=== PATIENT | female | born 1955 | race Hispanic/Latino ===

== ENCOUNTER 2022-12-27 13:41 | Emergency (ER) | payer OTHER, MEDICARE ==
[~2022-12-27] VITALS: Ht 165.1 cm; Wt 74.8 kg
[2022-12-27 13:46] VITALS: BP 144/67
[2022-12-27] MEDS ORDERED: CYCLOBENZAPRINE HCL 10 MG TABLET PO ONE (15:00)
[2022-12-27] MEDS ORDERED: TIZA4CAP8 PO (16:41)
== END 2022-12-27 17:00 | disposition home or self-care (01) ==
LOC: EDH 13:41
DX: S13.4XXA Sprain of ligaments of cervical spine, initial encounter (principal); S33.5XXA Sprain of ligaments of lumbar spine, initial encounter; E10.9 Type 1 diabetes mellitus without complications; I10 Essential (primary) hypertension; V89.2XXA Person injured in unspecified motor-vehicle accident, traffic, initial encounter; Y93.89 Activity, other specified; Y92.89 Other specified places as the place of occurrence of the external cause; Y99.8 Other external cause status
CPT/HCPCS: 72040; 72100